=== PATIENT | male | born 1980 | race Caucasian/White ===

== ENCOUNTER 2025-03-08 08:50 | Emergency (ER) | payer OTHER ==
[2025-03-08] MEDS ORDERED: Acetaminophen 500 MG TAB ONE (11:51)
[2025-03-08 14:07] LABS: #Basophils 0.03 10x3/uL (0.0-0.2); #Eosinophils 0.32 10x3/uL (0.0-0.5); #Monocytes 0.84 10x3/uL (0.0-1.1); #Neutrophils 4.95 10x3/uL (1.5-8.4); %Basophils 0.4 % (0.0-2.0); %Eosinophils 3.7 % (0.0-6.0); %Lymphocytes 28.0 % (18.0-47.0); %Monocytes 9.8 % (0.0-10.0); %Neutrophils 57.9 % (40.0-75.0); Hematocrit 41.6 % (38.8-50.0); Hemoglobin 13.7 g/dL (13.5-17.5); Mean Corpuscular Hemoglobin 30.2 pg (27.0-33.0); Mean Corpuscular Volume 91.8 fL (81.2-95.1); Platelet Count 326 10x3/uL (150-450); Red Blood Cell (RBC) Count 4.53 10x6/uL (4.32-5.72); White Blood Cell (WBC) Count 8.56 10x3/uL (3.5-10.5)
[2025-03-08 14:21] LABS: ALT (SGPT) 15 U/L (Less than 45); AST (SGOT) 18 U/L (11-34); Albumin 4.8 g/dL (3.1-4.5); Alkaline Phosphatase 85 U/L (40-110); Anion Gap 13 mmol/L (10-20); BUN (Urea Nitrogen) 4 mg/dL (8.9-20.6); Bilirubin, Total 0.6 mg/dL (0.3-1.2); Calc. Creatinine Clearance 0 mL/min (70-130); Calcium 9.1 mg/dL (7.8-10.44); Carbon Dioxide 26 mmol/L (22-29); Chloride 107 mmol/L (98-107); Globulin 2.8 g/dL (2.4-3.5); Glucose 96 mg/dL (70-105); Potassium 3.5 mmol/L (3.5-5.1); Sodium 142 mmol/L (136-145)
[2025-03-08 17:18] LABS: ALV-art Gradient 23.005 mmHg (0-20); Actual Bicarbonate (HCO3a) 21.3 mEq/L (22-28); Analyzer IN Cardio CS ER; Base Excess (BEa) -2.6 mEq/L (-2.0 to +3.0); CO2 Tension 34.5 mmHg (35.0-45.0); Calcium, Ionized (arterial) 1.20 mmol/L (1.12-1.30); Hematocrit-ABG 43 % (42.0-52.0); Hemoglobin (Hb) 14.6 g/dL (14.0-18.0); O2 Tension (PaO2), arterial 83.6 mmHg (80.0-100.0); Potassium - ABG Lab 3.47 mmol/L (3.70-5.30); Puncture Site Left Radial artery; pH, Arterial 7.409 (7.35-7.45)
== END 2025-03-08 15:04 | disposition home or self-care (01) ==
LOC: CSHERS 08:50
DX: T25.421A Corrosion of unspecified degree of right foot, initial encounter (principal); T25.422A Corrosion of unspecified degree of left foot, initial encounter; T22.45 Corrosion of unspecified degree of shoulder
CPT/HCPCS: 36415; 36600; 80053; 82805; 85025; 99283